=== PATIENT | female | born 1995 | race Caucasian/White ===

== ENCOUNTER 2017-09-08 14:00 | Observation (INO) | payer BC ==
[2017-09-08 14:46] VITALS: RESP 20; TEMP 98.3; O2SAT 98
[2017-09-08 15:16] LABS: APPEARANCE,URINE Clear; BILIRUBIN,URINE NEGATIVE (NEGATIVE); COLOR,URINE Yellow; GLUCOSE, URINE (UA) NEGATIVE (NEGATIVE); KETONES,URINE NEGATIVE (NEGATIVE); LEUKOCYTE ESTERASE ,URINE NEGATIVE (NEGATIVE); NITRATE,URINE NEGATIVE (NEGATIVE); OCCULT BLOOD,URINE NEGATIVE (NEG-TRACE); UROBILINOGEN,URINE 0.2 (0.2-1.0 EU)
[2017-09-08 15:33] LABS: RBC,URINE 0-1 (0-3AV/HPF); WBC,URINE 0-4 (0-5AV/HPF)
[2017-09-08 16:05] LABS: BASOPHILS % (AUTO) 0 % (0-3); EOSINOPHILS % (AUTO) 0 % (0-9); HEMATOCRIT 28 % (35-47); MEAN CORPUSCULAR HGB CONC 33.4 gm/dl (32.0-36.0); MEAN CORPUSCULAR VOLUME 82 fL (81-99); MONOCYTES % (AUTO) 5.1 % (0-12); NEUTROPHILS % (AUTO) 83.3 % (37-80)
[2017-09-08 16:23] LABS: ALBUMIN 2.2 gm/dl (3.4-5.0); CALCIUM 8.5 mg/dl (8.5-10.1); POTASSIUM 3.5 mMol/L (3.5-5.1)
[2017-09-08 18:09] VITALS: BP 132/77; PULSE 87
== END 2017-09-08 17:30 | disposition home or self-care (01) ==
LOC: OB 14:00 → ED 14:00 → UNDOADMOB 14:16 → OB 14:16 → EDSTATUS 14:58
PROVIDERS: ADMIT Family Medicine; ATTEND Family Medicine
DX: Z34.83 Encounter for supervision of other normal pregnancy, third trimester (principal)
CPT/HCPCS: 36415; 59025; 80053; 81001; 84112; 85025; 87088

== ENCOUNTER 2017-09-08 14:00 | Inpatient (IN) | payer BC ==
[2017-09-25] MEDS ORDERED: MEPIVACAINE HCL 1% MPF 30 ML SOL INFIL PRN (16:22)
[2017-09-25] MEDS ORDERED: CARBOPROST 250 MCG/ML SOL IM PRN (16:22)
[2017-09-25] MEDS ORDERED: FENTANYL 100MCG/2ML SOL IV PRN (16:22)
[2017-09-25] MEDS ORDERED: METHYLERGONOVINE MALEATE 0.2 MG/ML SOL IM PRN (16:22)
[2017-09-25] MEDS ORDERED: SODIUM CHLORIDE 0.9% FLUSH 10 ML SOL IV PRN (16:22)
[2017-09-25] MEDS ORDERED: OXYTOCIN 10000 MU/ML SOL IM PRN (16:22)
[2017-09-25] MEDS ORDERED: LACTATED RINGERS 1,000 ML IV PRN (16:22)
[2017-09-25] MEDS ORDERED: AMPICILLIN 1 GM PDS 2 GM in SODIUM CHLORIDE 0.9% 100 ML 100 ML IV SCH (16:30)
[2017-09-25] MEDS: SODIUM CHLORIDE 0.9% FLUSH 10 ML SOL IV SCH (17:08)
[2017-09-25 17:45] LABS: HEMATOCRIT 30 % (35-47); MEAN CORPUSCULAR HGB CONC 32.2 gm/dl (32.0-36.0); MEAN CORPUSCULAR VOLUME 80 fL (81-99)
[2017-09-25 17:46] LABS: EOSINOPHILS % (AUTO) 1 % (0-9)
[2017-09-25 17:47] LABS: BASOPHILS % (AUTO) 0 % (0-3)
[2017-09-25] MEDS ORDERED: AMPICILLIN 1 GM PDS ONE ×2 (18:33→22:06)
[2017-09-25] MEDS ORDERED: LIDOCAINE HCL 2% MPF SOL ONE (18:40)
[2017-09-25] MEDS ORDERED: DIPHENHYDRAMINE 50 MG/ML SOL IV PRN (18:40)
[2017-09-25] MEDS ORDERED: NALOXONE HYDROCHLORIDE 0.4 MG/ML SOL IV PRN (18:40)
[2017-09-25] MEDS ORDERED: NALBUPHINE HCL 20 MG/ML SOL IV PRN (18:40)
[2017-09-25] MEDS ORDERED: EPHEDRINE SULFATE 50 MG/ML SOL IV PRN (18:40)
[2017-09-25] MEDS: LACTATED RINGERS 1,000 ML IV SCH ×3 (18:45→19:12)
[2017-09-25] MEDS ORDERED: LACTATED RINGERS 1,000 ML IV SCH (18:45)
[2017-09-25] MEDS ORDERED: ROPIVACAINE HYDROCHLORIDE 5 MG/ML SOL ONE (19:50)
[2017-09-25] MEDS ORDERED: FENTANYL 250 MCG/ 5ML SOL ONE (19:50)
[2017-09-25] MEDS ORDERED: AMPICILLIN 1 GM PDS 1 GM in SODIUM CHLORIDE 0.9% 100 ML 100 ML IV SCH (20:25)
[2017-09-26] MEDS: SODIUM CHLORIDE 0.9% FLUSH 10 ML SOL IV SCH ×3 (00:44→22:47)
[2017-09-26] MEDS ORDERED: WITCH HAZEL 1 EA PAD TOP PRN (01:13)
[2017-09-26] MEDS ORDERED: TEMAZEPAM 15MG 15 MG CAP PO PRN (01:13)
[2017-09-26] MEDS ORDERED: BENZOCAINE/MENTHOL 1 SPR TOP PRN (01:13)
[2017-09-26] MEDS ORDERED: BISACODYL 10 MG SUP PR PRN (01:13)
[2017-09-26] MEDS ORDERED: METHYLERGONOVINE MALEATE 0.2 MG TAB PO PRN (01:13)
[2017-09-26] MEDS ORDERED: APAP/HYDROCODONE 325/5 TAB PO PRN (01:13)
[2017-09-26] MEDS ORDERED: FLEET ENEMA PR PRN (01:13)
[2017-09-26] MEDS: IBUPROFEN 600 MG TAB PO PRN ×4 (01:50→19:42)
[2017-09-26] MEDS: DOCUSATE SODIUM 100 MG SGL PO SCH ×2 (08:57→21:00)
[2017-09-26] MEDS: FERROUS GLUCONATE 324 MG TABLET PO SCH (08:58)
[2017-09-26] MEDS ORDERED: FERROUS SULFATE 325 MG TAB PO SCH (09:00)
[2017-09-26] MEDS ORDERED: SERTRALINE HYDROCHLORIDE 50 MG TAB ONE (09:27)
[2017-09-26] MEDS: SERTRALINE HYDROCHLORIDE 50 MG TAB PO SCH (09:31)
[2017-09-27] MEDS: FERROUS GLUCONATE 324 MG TABLET PO SCH (08:55)
[2017-09-27] MEDS: IBUPROFEN 600 MG TAB PO PRN ×3 (08:55→21:10)
[2017-09-27] MEDS: DOCUSATE SODIUM 100 MG SGL PO SCH ×2 (08:55→21:10)
[2017-09-27] MEDS ORDERED: SERTRALINE HYDROCHLORIDE 50 MG TAB ONE (08:57)
[2017-09-27] MEDS: SERTRALINE HYDROCHLORIDE 50 MG TAB PO SCH (08:58)
[2017-09-27 15:51] VITALS: O2SAT 98
[2017-09-27 21:18] VITALS: RESP 14
[2017-09-28] MEDS ORDERED: SERTRALINE HYDROCHLORIDE 50 MG TAB ONE (08:17)
[2017-09-28] MEDS: FERROUS GLUCONATE 324 MG TABLET PO SCH (08:19)
[2017-09-28] MEDS: IBUPROFEN 600 MG TAB PO PRN (08:19)
[2017-09-28] MEDS: SERTRALINE HYDROCHLORIDE 50 MG TAB PO SCH (08:19)
[2017-09-28] MEDS: DOCUSATE SODIUM 100 MG SGL PO SCH (08:19)
[2017-09-28 08:59] VITALS: BP 119/77; PULSE 75; TEMP 98.6
== END 2017-09-28 13:55 | disposition home or self-care (01) | DRG 560 ==
LOC: OB 14:00 → UNDOADMOB 14:00 → OBSVTOIN 09-25 16:03 → OB 09-25 16:03
PROVIDERS: ADMIT Family Medicine; ATTEND Family Medicine
PROC: 10907ZC Drainage of Amniotic Fluid, Therapeutic from Products of Conception, Via Natural or Artificial Opening (ICD-10-PCS; 2017-09-25)
PROC: 10E0XZZ Delivery of Products of Conception, External Approach (ICD-10-PCS; principal; 2017-09-26)
PROC: 0HQ9XZZ Repair Perineum Skin, External Approach (ICD-10-PCS; 2017-09-26)
PROC: 3E04329 Introduction of Other Anti-infective into Central Vein, Percutaneous Approach (ICD-10-PCS; 2017-09-26)
DX: O99.824 Streptococcus B carrier state complicating childbirth (principal); O76 Abnormality in fetal heart rate and rhythm complicating labor and delivery; Z3A.39 39 weeks gestation of pregnancy; Z37.0 Single live birth; O70.0 First degree perineal laceration during delivery
CPT/HCPCS: 36415; 59025; 85018; 85025; 99070; J0290; J0670; J2590; J2795; J3010; A9270-GY